=== PATIENT | female | born 1980 ===

== ENCOUNTER 2018-09-17 09:49 | Outpatient (REF) | payer MEDICAID, SELFPAY ==
[2018-09-17 19:51] LABS: Cholesterol 195 mg/dL (50-200); Glucose 102 mg/dL (70-100); HDL Cholesterol 34 mg/dL (40-60); LDL CHOLESTEROL 125 mg/dL (<100); TSH 1.53 uIU/mL (0.358-3.74); Triglyceride 264 mg/dL (30-150)
[2018-09-20 09:16] LABS: LH 4.8 mIU/ml; Prolactin 9.8 ng/ml
[2018-09-27 12:32] LABS: Testosterone, Total 27 ng/dL
== END 2018-09-17 10:09 ==
LOC: NCHCN 09:49
PROVIDERS: PCP Physician Assistant Medical; Visit Provider Nurse Practitioner Family
DX: E28.2 Polycystic ovarian syndrome (principal); Z00.00 Encounter for general adult medical examination without abnormal findings
CPT/HCPCS: 80061; 82947; 83721; 84403; 83001; 83002; 84146; 84443

== ENCOUNTER 2021-03-18 18:53 | Outpatient (REF) | payer SELFPAY ==
[2021-03-18 19:36] LABS: Hemoglobin A1C 5.4 % (<5.7)
== END 2021-03-18 18:54 | disposition home or self-care (01) ==
LOC: NCHCN 18:53
PROVIDERS: PCP Physician Assistant Medical; Visit Provider Nurse Practitioner Family
DX: E28.2 Polycystic ovarian syndrome (principal)
CPT/HCPCS: 83036; 84443

== ENCOUNTER 2021-05-21 09:39 | Outpatient (REF) | payer BC, SELFPAY ==
[2021-05-23 12:43] LABS: COVID-19 RT-PCR UVMMC Result Negative (Negative)
== END 2021-05-21 09:40 | disposition home or self-care (01) ==
LOC: NCHCN 09:39
PROVIDERS: PCP Physician Assistant Medical; Visit Provider Physician Assistant
DX: J06.9 Acute upper respiratory infection, unspecified (principal); Z20.822 Contact with and (suspected) exposure to COVID-19
CPT/HCPCS: U0003